=== PATIENT | male | born 1955 | race Caucasian/White ===

== ENCOUNTER 2017-03-09 12:44 | Inpatient (IN) | payer OTHER ==
[~2017-03-09] VITALS: Ht 180.3 cm; Wt 150.8 kg
[~2017-03-09 12:44] MED LIST: ALBU8.5H2 INHALATION; AMLO5TAB2 PO; FLC50T PO; FURO40TA4 PO; GUAI118L13 PO; IBUP800T28 PO; KETO120S3 TP; LIP40 PO; LISI-571 PO; METH750T3 PO; METO100T3 PO; METO50TA3 PO; OXYC-474 PO; OXYC-537 PO; POTA20TA7 PO; TIZA4CAP8 PO; WARF5TAB PO; WARF5TAB7 PO
[2017-03-25] VITALS (7 sets, daily range): BP systolic 90–141; BP diastolic 56–93; PULSE 70–85; RESP 17–19; O2SAT 94–98
[2017-03-25] MEDS ORDERED: Alum-Mag Hydrox-Simeth 30 mL Suspension PO PRN (08:35)
[2017-03-25] MEDS ORDERED: Polyethylene Glycol (PEG) 17 Gm Powder PO PRN (08:35)
[2017-03-25] MEDS ORDERED: NYQUIL PO (09:32)
[2017-03-25] MEDS ORDERED: FLUT16SP AD (09:32)
[2017-03-25 10:24] LABS: INR 3.23 ratio
[2017-03-25 10:42] LABS: Magnesium 1.4 mg/dL (1.6-2.6)
[2017-03-25] MEDS ORDERED: NYQUIL PO PRN (11:00)
[2017-03-25] MEDS ORDERED: Codeine-guaiFENesin 10 mL Syrup PO PRN (11:00)
[2017-03-25] MEDS ORDERED: Albuterol 2.5 mg/3 mL Inhalation Solution NEB PRN (11:00)
--- NOTE | 2017-03-25 11:44 | PCM.PHAPRO ---
Progress WARFARIN DOSING INDICATION: AFib Home dose: 5mg Moore,,, Fr / 7.5mg ,W,Thu (day) Thu [facility] GSF Date Mar 26-Mar 27-Mar 28-Mar 29-Feb 28-March 31-April 01-April 02-March INR 3.23 Warf Dose 2.5 mg x1 a/ Mildly elevated INR on admit p/ 50% dose today and follow Prashant Mc Pharm D Mar 25, 2017 11:44
[2017-03-25] MEDS: Sodium Chloride LOK Flush 10 mL Syringe IVFLUSH SCH ×3 (12:44→23:05)
--- NOTE | 2017-03-25 17:14 | HP ---
[address] [address] HISTORY AND PHYSICAL PATIENT: MABEL SCHULER : 1955 MR#: [id number] ADMIT: 03/25/2017 JOB ID: [id number] REASON FOR ADMISSION: To start new antiarrhythmic therapy for atrial fibrillation with sotalol. CHIEF COMPLAINT: Palpitations and rapid pulse with exertion. HISTORY: This patient is a pleasant, 61-year-old man with a structurally normal heart, who was referred to Dr. Vishal Barnes for management of atrial fibrillation and atrial flutter. He has been anticoagulated with warfarin for a number of years now and has been dealing with paroxysmal and persistent episodes of atrial fibrillation. He was started on flecainide and a beta sisi and underwent cardioversion last year. He maintained sinus rhythm for brief period of time during which he noted feeling better energy and easier breathing. After he reverted back to atrial fibrillation at one point, he also had documented atrial flutter which appeared to be typical in nature. His EKG of late showed atrial fibrillation with a controlled rate. He reports that whenever he exerts himself, his pulse rate can be very fast, and indeed on a treadmill test when he was in atrial fibrillation, the test had to be stopped due to heart rates in excess of 200 beats per minute. With tachycardia, he feels chest pressure. Prior to considering a catheter based mapping and ablation procedure for atrial fibrillation, he prefers to trial a different antiarrhythmic. PAST MEDICAL HISTORY: This is positive for hypertension, obstructive sleep apnea, hyperlipidemia, chronic back pain due to cervical spine stenosis. ALLERGIES/MEDICAL INTOLERANCES: 1. PENICILLIN. 2. AMOXICILLIN. 3. AUGMENTIN All cause a rash. FAMILY HISTORY: Not contributory to the present concern of arrhythmia. REVIEW OF SYSTEMS: In general, he complains of exertional tachycardia, fatigue and chest pressure along with exertional dyspnea. At rest, he denies dyspnea and cardiac rhythm is fairly regular and not tachycardia at rest. He is not feeling palpitations at rest. Skin: No rash. GI: No blood in stool, recent constipation. Hematology: No easy bleeding. Psychiatric: Positive for anxiety. : No hematuria. Eyes: Negative for visual changes. Cardiac: Positive for trace edema, palpitations and chest pressure. Neuro: Negative for dizziness. The other points of the review of systems are negative. PHYSICAL EXAMINATION: Vital signs: BP 122/88, pulse irregular at 80, he is afebrile, pulse oximetry 94% on room air, respiratory rate 17. Overall he is a well-nourished, well-developed, obese, middle aged man with no distress at present. He is anxious however. Head is normocephalic. Eyes: Pupils are accommodating. Extraocular movements are normal. Mouth has good dentition. Neck: Obese. Carotid pulses are difficult to palpate. There are no carotid bruits. No JVD is seen. Chest examination: Breath sounds are full and clear in all muhammad without rales. Cardiac exam reveals an irregular rhythm without bruits or extra sounds. Abdomen is obese, but nontender, no organomegaly is detected, bowel sounds are active. Pulses are intact in the extremities, there is trace edema in the legs. No cyanosis or clubbing noted. He moves all four limbs normally. His neuro exam is grossly normal. ASSESSMENT: Patient with a history of persistent atrial fibrillation. He is currently in atrial fibrillation with a controlled rate. He has previously been cardioverted and felt notably better in sinus rhythm. Prior treatment with flecainide was unsatisfactory. His initial ECG showed atrial fibrillation with average rate of 85 bpm and a QT of 377 and QTc 449 msec. Two hours after the first dose of sotalol, ECG showed atrial fibrillation, average rate 76 bpm, QT 398 and QTc 448 msec. He has not had any side effects of sotalol so far. PLAN: Continue sotalol at 80 mg q.12 h. with 12 lead ECG looking for abnormal prolongation of the QT interval. The ECG is recorded at 2-3 hours after each dose. If atrial fib persists to the third day, then will schedule cardioversion. He is theraputicly anticoagulated with warfarin. [facility]
--- NOTE | 2017-03-25 17:46 | NUR ---
Admit Pt arrived as a scheduled admission around 0800 this AM. A&O X3. Answers questions appropriately. Able to make needs known. Lungs clear throughout. HR irregular. Tele a-fib in the 80s. Last BM yesterday. Ambulates independently. Edema throughout feet, ankles, and legs. Trace, non-pitting mostly. Sotalol 80mg given at 1050 after EKG. EKG followed 2 hours later. Pt given oxycodone 10mg at 1210 and at 1640 for chronic back pain 05/09. Pt also c/o feeling anxious and will receive ativan.
[2017-03-25] MEDS: LORazepam 1 mg Tablet PO PRN (18:06)
--- NOTE | 2017-03-25 21:51 | NUR ---
SOTALOL Pt received 80mg Sotalol @ 2124, EKG ordered for 2324. Pt' vitals stable, no complaints of pain @ this time.
[2017-03-26] VITALS (7 sets, daily range): BP systolic 111–142; BP diastolic 73–95; PULSE 68–99; RESP 16–20; O2SAT 94–98
[2017-03-26 03:13] LABS: INR 3.21 ratio
[2017-03-26] MEDS: Fluticasone 0.05% 15 Spray/2 Gm 16 Gm Nasal Spray NASAL SCH (08:30)
[2017-03-26] MEDS: Sodium Chloride LOK Flush 10 mL Syringe IVFLUSH SCH ×5 (09:32→21:04)
[2017-03-26] MEDS: Potassium Chloride 20 mEq SR Tablet PO SCH (09:35)
[2017-03-26] MEDS: LORazepam 1 mg Tablet PO PRN ×2 (12:01→21:02)
--- NOTE | 2017-03-26 14:13 | PCM.PHAPRO ---
Progress WARFARIN DOSING INDICATION: AFib Home dose: 5mg ,,, Fr / 7.5mg ,W,Thu (day) Thu [facility] Date Mar 26-Mar 27-Mar 28-Mar 29-Feb 28-March 31-April 01-April 02-March INR 3.23 3.21 Warf Dose 2.5 mg x1 1mg x1 a/ Elevated INR continues in spite of reduced dose yesterday. p/ One mg today Prashant Mc S Pharm D Mar 26, 2017 14:13
--- NOTE | 2017-03-26 15:21 | NUR ---
Social Work: Initial Assessment D: Per EMR review, pt is a 61 year old female admitted for sotalol loading. Pt is David HA with no LTC insurance or VA benefits. PCP is Geremias Elizondo DO. NOK is Shira Lee, sister, . Advanced directives not completed- information provided. No Readmit score entered at this time. REHAB TRAINER met with pt at bedside. Sw role explained. See initial assessment. Pt lives in a two story home in [place]. Pt is I with ADLs at baseline and uses no DME. Pt continues to drive and has never had HH but had a short stay at [facility] for rehab several years ago. Pt expresses no concerns about discharge home and states a friend will transport. EMR reviewed; no sw needs identified at this time. Pt has been I during admission. A: pt who is I at baseline. P: Anticipate pt to discharge home with friend to transport once medically stable; REHAB TRAINER to continue to follow. YUKI Parr Addendum: 03/26/17 at 1535 by RAJAN RAYO Amended: Links added.
--- NOTE | 2017-03-26 18:43 | NUR ---
Tele No reports of chest pain/pressure/discomfort. Tele AFIB 80s-90s throughout shift. No reports of SOB at rest, reports mild SOB with ambulation. No reports of n/v/d/c or abdominal pain. Voiding without complication. Alert and oriented x3, BARROW, reports bilateral tingling/mild numbness in all extremities r/t back fusion/spasms.
[2017-03-27] VITALS (17 sets, daily range): BP systolic 84–146; BP diastolic 55–100; PULSE 58–89; RESP 11–24; O2SAT 94–97
[2017-03-27 04:00] LABS: INR 1.95 ratio
[2017-03-27 04:08] LABS: Magnesium 1.9 mg/dL (1.6-2.6)
--- NOTE | 2017-03-27 04:46 | NUR ---
Telemetry Pt afib 70s throughout shift; HS sotalol given with 2hr post-EKG obtained. Latest QTc 460. Pt reports pain at HS approx. 6/10 to back; Ativan, ibuprofen, oxycodone given in addition to HS medications. Pt reports mildly effective on reassessment; requests additional oxycodone and tylenol x1. VSS.
[2017-03-27] MEDS: Sodium Chloride LOK Flush 10 mL Syringe IVFLUSH SCH ×4 (08:30→16:55)
[2017-03-27] MEDS: Potassium Chloride 20 mEq SR Tablet PO SCH (08:54)
[2017-03-27] MEDS: LORazepam 1 mg Tablet PO PRN (08:56)
[2017-03-27] MEDS: Fluticasone 0.05% 15 Spray/2 Gm 16 Gm Nasal Spray NASAL SCH (08:56)
--- NOTE | 2017-03-27 09:16 | PROG NOTE ---
[address] [address] PROGRESS NOTE PATIENT: MABEL SCHULER : 1955 MR#: [id number] ADMIT: 03/25/2017 JOB ID: [id number] DATE: 03/26/2017 CHIEF COMPLAINT: "I feel a little anxious and fatigued." SUBJECTIVE: The patient is a pleasant 61-year-old man who was admitted yesterday for new antiarrhythmic therapy with sotalol for treatment of atrial fibrillation. He has had three doses of sotalol to this point, and he is tolerating them well and denies any side effects. Specifically, he denies nausea, rash, headache, shortness of breath and GI upset. OBJECTIVE: The patient's vital signs have remained stable. The metoprolol dose was decreased as the sotalol dose was increased and his BPs have stayed in the normal range. His initial 12 lead ECG showed an atrial fibrillation with an average rate of 85 BPM and the QTc of 449 msec. Now, after his third dose, he remains in atrial fibrillation with an average rate of 78 BPM and the QTc is still 449 msec. His sotalol dose was increased to 128 mg two hours before this last ECG. He has been ambulatory around the unit without difficulty. His physical examination is unchanged from admission. ASSESSMENT: The patient with persistent atrial fibrillation has been started on sotalol at 80 mg and the dose has been advanced to 120 mg b.i.d. His ECG is unchanged in terms of rhythm and QT interval. He has no side effects from the medication. His vital signs remain stable. PLAN: Continue sotalol at 120 mg b.i.d. with a 12 lead ECG recorded two hours after each dose to observe for any abnormal QT prolongation. We will plan on cardioversion tomorrow after the fifth dose if he remains in atrial fibrillation. He will be n.p.o. after midnight.
--- NOTE | 2017-03-27 09:31 | PCM.HPANE ---
Patient Data Surgeon Admitting Provider:Vishal Barnes MD Attending Provider:Vishal Barnes MD Primary Care Physician:Geremias Elizondo DO Other Provider: Reason for Visit Sotalol Loading Ht/WT & BMI Height (Feet): 5 Height (Inches): 11.00 Weight (Kilograms): 150.800 Body Mass Index 46.27 Allergies Coded Allergies: Penicillins (Verified Allergy, Severe, 10/28/15) amoxicillin (Verified Allergy, Unknown, 10/28/15) Past Anesthesia History Anesthesia History: Positive for:: Anesthesia Reactions (hallucinations), Denies:: Abnormal Airway, Difficult Intubation, Fam Anesthesia Reaction, Fam Malignant Hypertherm, Malignant Hyperthermia Additional Information: Emergence delerium following gallbladder surgery Diabetes History Hx Diabetes?: No (low blood sugar occasionally) MRSA MRSA: No Medications Blood Thinner: Coumadin Reported Medications [Nyquil] No Conflict Check1 Dose PO HS PRN For Cough 03/25/17 Fluticasone Propionate (Fluticasone Propionate Nasal)16 Gm [place].susp1 [place] AD DAILY #16 03/25/17 Ketoconazole 120 Ml Vanqzvn404 Ml TP Every 3 days 08/27/16 Tizanidine 4 Mg Capsule4 Mg PO HS 08/27/16 Oxycodone (Roxicodone)5 Mg Nbbqee11 Mg PO Q4H PRN For Pain Ref 0 08/27/16 Potassium Chloride ER (Klor-Con M20)20 Meq Zothhe59 Meq PO DAILY Ref 0 08/27/16 Ibuprofen 800 Mg Yzgwuy222 Mg PO BIDWM PRN For Pain Ref 0 08/27/16 Warfarin Sodium 5 Mg Tablet7.5 Mg PO MON, WED, SAT 30 Days Ref 0 08/27/16 Lisinopril 5 Mg Tablet5 Mg PO DAILY #30 TABLET Ref 0 08/27/16 Metoprolol Tartrate 100 Mg Ufccyv288 Mg PO BID 30 Days Ref 0 11/12/15 Methocarbamol 750 Mg Dxqksp117 Mg PO QID PRN For Spasm Ref 0 11/12/15 Furosemide 40 Mg Srbiuc76 Mg PO DAILY 11/12/15 Warfarin Sodium (Coumadin)5 Mg Tablet5 Mg PO TUE, ZIA, FRI, SUN 30 Days Ref 0 11/12/15 Guaifenesin/Codeine Phosphate (Cheratussin AC Syrup)118 Ml Opkiwp25 Ml PO q4hr 11/12/15 Atorvastatin (Lipitor)40 Mg Rsuopk13 Mg PO DAILY Ref 0 11/12/15 Amlodipine 5 Mg Tablet5 Mg PO DAILY Ref 0 11/12/15 Albuterol HFA (Proair HFA)8.5 Gm Hfa.aer.ad2 Puffs INHALATION Q4H #1 INHALER 11/12/15 Discontinued Reported Medications Metoprolol Tartrate 50 Mg Sdfrqo63 Mg PO BID 30 Days Ref 0 08/27/16 Flecainide Acetate 50 Mg Flvsys52 Mg PO BID 30 Days 08/27/16 Tizanidine 4 Mg Capsule4 Mg PO DAILY 11/12/15 Oxycodone HCl (Oxaydo)5 Mg Tablet.orl5 Mg PO 11/12/15 History History of ENT Problems?: Yes HEENT History: Positive for:: Hearing Problem Sinus Problem (sometimes) Denies:: Abnormal Airway Cataracts Difficult Intubation Dysphagia Glaucoma Denture Type: None Teeth Condition: Tooth Decay Hx of Heart Problems?: Yes Cardiovascular History: Positive for:: Atrial Fibrillation Chest Pain Congestive Heart Failure ("I think I might have, once") Edema (ankles) Hypertension Irregular Heartbeat (Afib) Denies:: AICD Cardiac Surgery (cardioversion 2015) Heart Murmur Pacemaker Thrombophlebitis Valvular Heart Disease Other History/Comments Well controlled hypertension, Afib with high heart rate, s/p cardioversion previously, ECHO completed Hx of Respiratory Problem?: Yes Respiratory History: Positive for:: Dyspnea Pneumonia Denies:: Asthma COPD (chronic bronchitis) Chest Surgery Emphysema Hemoptysis Tuberculosis Other History/Comment lungs at baseline function, no recent inhalor use Hx Neurologic Problems?: Yes Neurological History: Positive for:: Headaches Denies:: Alzheimer's Disease CVA Dementia Dizziness Parkinson's Disease Seizures Hx of GI Problems?: No Gastrointestinal History: Denies:: Cirrhosis Diverticulitis Gall Bladder Disease Gastroesphageal Reflux Gastrointestinal Bleeding Heartburn Hepatitis Hiatal Hernia Liver Disease Rectal Bleeding Hx of Problems?: No Genitourinary History: Denies:: HX of Hemodialysis Kidney Stones Urinary Tract Infection HX of Peritoneal Dialysis: No Male Hx: Denies:: Prostate Problems Scrotal Mass Testicular Surgery Hx Musculoskeletal Problems?: Yes Musculoskeletal History: Positive for:: Back Injury (back surgeries, physical labor with herniated discs) Denies:: Joint Replacement Musculoskeletal Trauma Hx of Psycho/Social Problems?: Yes Psycho Social History: Positive for:: Anxiety Hx Depression Denies:: Bipolar Disorder Suicide Attempt Hx Surgeries?: Yes (March 2009 Back surgery, CAR) Other History/Comment Emergence delerium Hx Any Other Health Problems?: No Other History: Positive for:: Hospitalization (back, cholelithiasis) Denies:: Cancer Endocrine Disease Thyroid Disease History Blood Transfusions: Positive for:: Accept Blood Products? Denies:: Blood Transfuse Reaction Blood Transfusions Hx Diabetes: No (low blood sugar occasionally) Hx Alcohol Use: NoHx Substance Use: Yes (marijuana edibles "a couple of times ") Smoking Status: Never Smoker Have You Smoked inLast 12 mo: No Stop/Bang Treated for Sleep Apnea?: Yes Do You Have a CPAP Machine?: Yes (left at home, says no one is available to bring it in) DOV Category 2: Yes Risk Assessment Category Category 1A: Patient has history of documented sleep apnea, and HAS NOT received any narcotic, sedative or anesthesia administration during this stay. Category 1B: Patient has history of documented sleep apnea, and HAS received any narcotic , sedative or anesthesia administration during this stay Category 2: Patient has SUSPECTED Obstructive Sleep Apnea, and HAS received any narcotic , sedative or anesthesia administration during this stay. Category 3: Patient has SUSPECTED Obstructive Sleep Apnea and HAS NOT received narcotic, sedative or anesthesia administration during this stay. Category 4: Outpatient in Procedural Areas with known sleep apnea or who screen positive for High Risk via the STOP/BANG questionnaire. Exam Exam Vital Signs Vital Signs Date Time Temp Pulse Resp B/P Pulse Ox O2 Delivery O2 Flow Rate FiO2 03/27/17 08:48 36.6 89 18 146/100 96 Room Air 03/27/17 07:52 83 03/27/17 03:21 80 03/27/17 02:42 36.5 78 18 125/83 94 Room Air General Appearance: Alert, Oriented X3, Cooperative HEENT/AIRWAY: MP 3 Lungs: Clear to Auscultation, Normal Air Movement Heart: Other Additional Information afib Meds/Labs/Diagnostics Admission Meds Current Medications Warfarin Sodium (Coumadin) 1 mg ONCE@17 ONCE PO Last administered on t 18:01; Start 03/26/17 at 17:00; Stop 03/26/17 at 17:01; Status DC Metoprolol Tartrate (Lopressor) 75 mg BID PO Last administered on 03/27/17 08: 54; Start 03/26/17 at 20:30 Sotalol HCl (Betapace) 120 mg BID PO Last administered on 03/27/17 08:55; Start 03/26/17 at 20:30 Warfarin Sodium (Coumadin) 5 mg ONCE ONCE PO Last administered on 03/27/17 09 :13; Start 03/27/17 at 08:25; Stop 03/27/17 at 08:26; Status DC Labs Test 03/25/17 09:55 03/27/17 03:10 Total Bilirubin 0.4mg/dL (0.0-1.2) Aspartate Amino Transf (AST/SGOT) 20U/L (0-50) Alanine Aminotransferase (ALT/SGPT) 19U/L (0-44) Alkaline Phosphatase 101U/L (25-160) Total Protein 6.4g/dL (6.4-8.4) Albumin 3.9g/dL (3.4-5.0) Prothrombin Time 21.2sec (8.1-12.5) Prothromb Time International Ratio 1.95ratio Sodium Level 136mEq/L (134-144) Potassium Level 4.2mEq/L (3.5-5.2) Chloride Level 98mEq/L (97-108) Carbon Dioxide Level 27mmol/L (18-29) Blood Urea Nitrogen 19mg/dL (8-27) Creatinine 0.79mg/dL (0.76-1.27) Estimat Glomerular Filtration Rate 105mL/min (>59) Glucose Level 90mg/dL (60-99) Calcium Level 8.8mg/dL (8.5-10.1) Magnesium Level 1.9mg/dL (1.6-2.6) Plan Impression Patient chart reviewed, patient interviewed and anesthestic plan with risks, benefits, and alternatives discussed, and informed consent obtained. Michael Duggan MD Mar 27, 2017 09:31
--- NOTE | 2017-03-27 13:34 | NUR ---
[facility]: Pt arrived to [facility] for cardioversion at 1325, in pt bed, report received from Shellie España RN. Pt alert and oriented, calm and conversant. Tele monitor afib 80's, no c/o chest pain. Awaiting procedure to be done with anesthesia
--- NOTE | 2017-03-27 15:52 | PROCED ---
[address] [address] PROCEDURE NOTE PATIENT: MABEL SCHULER : 1955 MR#: [id number] ADMIT: 03/25/2017 JOB ID: [id number] DATE OF SERVICE: 03/27/2017 PREOPERATIVE DIAGNOSIS(ES): Atrial fibrillation. POSTOPERATIVE DIAGNOSIS(ES): Sinus rhythm. PROCEDURE PERFORMED: Direct current cardioversion. SURGEON: Unified Communications Engineer: Vishal Barnes MD SEDATION: Monitored anesthesia care was provided by the Anesthesiology service. INDICATION: This patient is a 61-year-old man with preserved LV function, symptomatic paroxysmal drug refractory atrial fibrillation, who was admitted for sotalol loading and comes down for a direct current cardioversion after discussion of risks and benefits and after confirmation of adequate anticoagulation. PROCEDURAL DESCRIPTION: Following informed consent, the patient was taken to procedure suite in a fasting state where defibrillator patches were placed in the anterior and posterior positions. After adequate sedation, a 200 joule biphasic synchronized shock was used to convert him to sinus rhythm. He came back into sinus bradycardia. He will be allowed to recover and discharged home with close followup. COMPLICATIONS: None. ESTIMATED BLOOD LOSS: None. IMPRESSION: Successful direct current cardioversion. PLAN: 1. Recovery and eventual discharge on sotalol and warfarin. 2. Follow up with myself, in 3-4 weeks. ATTENDING STATEMENT: Vishal Barnes MD, electrophysiology attending, was present for and supervised/performed all aspects of this procedure.
--- NOTE | 2017-03-27 15:56 | PCM.ANEP1 ---
Post Anesthesia Phase 1 PACU Phase 1 Assessment Vital Signs Vital Signs Date Time Temp Pulse Resp B/P Pulse Ox O2 Delivery O2 Flow Rate FiO2 03/27/17 15:52 54 15 03/27/17 15:45 54 16 03/27/17 15:41 53 18 03/27/17 15:34 55 20 03/27/17 15:30 51 24 03/27/17 15:27 49 11 03/27/17 15:25 91 18 03/27/17 15:24 87 15 03/27/17 15:18 89 24 03/27/17 13:33 81 12 129/85 97 Room Air 03/27/17 11:34 36.7 82 18 128/90 96 Room Air 03/27/17 08:48 36.6 89 18 146/100 96 Room Air Anesthetic Administered: GA Level of Alertness: Sleepy, easy to arouse BARROW's with Equal Strength: Yes Pain: No Pain Scale Score: 0 Nausea or Vomiting: No Cardiovascular Function and Hy: Yes Oxygen Delivery: Simple Mask Lungs: Clear to Auscultation, Normal Air Movement Dermatome Level: Full Sensation Complications: No Michael Duggan MD Mar 27, 2017 15:56
--- NOTE | 2017-03-27 15:58 | NUR ---
Cardioversion: Dr. Barnes and anesthesiologist at bedside to perform cardioversion at 1525, converted to SB 50's after 1 shock by . Pt now awake and alert, SB 57, no c/o pain, SpO2 95% on RA. Report called to Shellie España RN to re-assume care of pt on PCC. Addendum: 03/27/17 at 1616 by DENNY ALDRIDGE RN Pt taken to PCC room 2000 in bed at 1610.
--- NOTE | 2017-03-27 17:16 | PCM.DIMED ---
Discharge Instructions Date of Service Mar 27, 2017 Dates of Hospitalization Mar 25, 2017 at 07:50 Discharge Diagnosis Discharge Diagnosis Persistent Atrial Fibrillation Hypertension Obstructive Sleep Apnea Diet Heart Healthy Activity No restrictions Call your provider Shortness of breath, Weakness (unilateral), Other (Fainting or near fainting) Patient Instructions Mid-level Provider (F9): Geoff Wolf PA-C Follow-up with Mid-level in: 5 weeks Geoff Wolf PA-C Mar 27, 2017 17:16
[2017-03-27] MEDS ORDERED: BET80 PO (17:31)
[2017-03-27] MEDS ORDERED: MAGN400T23 PO (17:31)
[2017-03-27] MEDS ORDERED: METO100T3 PO (17:31)
--- NOTE | 2017-03-27 18:11 | DIS ---
[address] [address] DISCHARGE SUMMARY PATIENT: MABEL SCHULER : 1955 MR#: [id number] ADMIT: 03/25/2017 JOB ID: [id number] DIS: 03/27/2017 REASON FOR ADMISSION: To start new antiarrhythmic therapy for atrial fibrillation with sotalol. CHIEF COMPLAINT: Palpitations and fatigue. BRIEF HISTORY: The patient is a pleasant, 61-year-old man with a structurally normal heart but who has hypertension and obstructive sleep apnea and has developed persistent atrial fibrillation. He has been anticoagulated with warfarin for a number of years now and has been dealing with symptomatic paroxysmal and now persistent episodes of atrial fibrillation. He was started on flecainide and a beta-sisi last year and underwent a cardioversion but later relapsed to atrial fibrillation. Rather than proceeding to an ablation procedure, he wished to try another antiarrhythmic medication first. He was admitted for starting sotalol as treatment of atrial fibrillation. COURSE IN HOSPITAL: The patient was admitted to the [facility] and after baseline ECG and lab work was obtained and he was placed on cardiac telemetry, he was administered sotalol 80 mg b.i.d. His initial 12-lead ECG showed atrial fibrillation with an average heart rate of 85 beats per minute and a QTc interval of 449 msec. Over the course of the next few days, his sotalol dose was advanced to 120 mg b.i.d., and after the fifth dose, the average heart rate was 88 and the QTc was 460 msec. He was then taken down to the [facility] and was placed under anesthesia by the anesthesiologist and had a cardioversion to sinus rhythm. After cardioversion, the sinus rate was 53 BPM and the QTc 439 msec. He was transferred back up to the [facility] and back on telemetry and his sinus rate came up into the high 50s and low 60s. He remained in sinus rhythm and felt well for discharge home. He had no shortness of breath, chest pain, or near-syncope. DISPOSITION: The patient was discharged home in good condition with a followup appointment at the [facility] Cardiology office in one month. He has no activity restrictions and will follow a heart healthy diet. DISCHARGE MEDICATIONS: 1. Magnesium oxide 800 mg b.i.d. 2. Sotalol 120 mg b.i.d. 3. Albuterol inhaler two puffs q.4 h. 4. Amlodipine 5 mg daily. 5. Atorvastatin 40 mg daily. 6. Fluticasone one spray daily. 7. Furosemide 40 mg daily. 8. Guaifenesin liquid 10 mL q.4 h. as needed. 9. Ibuprofen 800 mg b.i.d. as needed. 10. Ketoconazole Shampoo 120 mg/mL, 1 tablespoon every three days. 11. Lisinopril 5 mg daily. 12. Methocarbamol 750 mg q.i.d. p.r.n. muscle spasm. 13. Oxycodone 10 mg q.4 h. p.r.n. pain. 14. Potassium chloride ER 20 mEq daily. 15. Tizanidine 4 mg q.h.s. 16. Warfarin 5 mg four days per week and 7.5 mg three days per week or as directed by his anticoagulation clinic. 17. Metoprolol tartrate 75 mg b.i.d. FINAL DIAGNOSES: 1. Persistent atrial fibrillation. 2. Hypertension. 3. Obstructive sleep apnea.
[2017-03-27] MEDS ORDERED: Propofol 10,000 mCg/mL 20 mL Inj ONE (18:49)
--- NOTE | 2017-03-27 18:50 | NUR ---
Discharge Patient ambulated off unit in a stable condition. Tele removed, IV DC'd intact, all personal belongings with patient. Discussed new medications of Sotalol and Magnesium PO, both next due doses are scheduled for tonight -- per patient his pharmacy in [place] close at 8pm and should have time to pickle solution maker new prescriptions. Metoprolol switched from 150mg PO to 75mg -- next due dose tonight, patient verbalized understanding. All other medications to be continued, next due doses written and discussed. Patient had no follow up appointment scheduled for cardiology -- per patient, FRANCIS Wolf stated to follow up in 1 month. Instructed patient to call on Friday 03/30 to schedule follow up appointment -- verbalized understanding.
== END 2017-03-27 18:50 | disposition home or self-care (01) | DRG 201 ==
LOC: PCC 03-25 07:50
PROVIDERS: ADMIT Internal Medicine Cardiovascular Disease; ATTEND Internal Medicine Cardiovascular Disease
PROC: 5A2204Z Restoration of Cardiac Rhythm, Single (ICD-10-PCS; principal; 2017-03-27)
DX: I48.1 Persistent atrial fibrillation (principal); I10 Essential (primary) hypertension; G47.33 Obstructive sleep apnea (adult) (pediatric); E78.5 Hyperlipidemia, unspecified

== ENCOUNTER → 2017-08-18 | Day surgery (SDC) | payer OTHER ==
[~2017-08-18] VITALS: Ht 182.9 cm; Wt 143.9 kg
[~2017-08-18] MED LIST changes: +0.9% Sodium Chloride 1,000 ML IV SCH; -FLC50T PO; +FLUT16SP NOSTRIL; -GUAI118L13 PO; +MAGN400T23 PO; -METO100T3 PO; +Methohexital 10 mg/mL 50 mL Inj ONE; -OXYC-537 PO; +POLY17PO2 PO; +SOTA160T PO
[2017-08-18 09:35] VITALS: BP 126/79; PULSE 89; RESP 14; O2SAT 98
[2017-08-18 09:40] LABS: BASOPHILS % (AUTO) 0.7 % (0-3); EOSINOPHILS % (AUTO) 2.5 % (0-5); MONOCYTES % (AUTO) 9.6 % (4-12); Mean Corpuscular Hemoglobin 30.8 pg (27.0-35.0); Mean Corpuscular Volume 91.4 fL (81-100); Platelet Count 209 bil/L (150-400)
[2017-08-18 10:30] VITALS: BP 127/77; RESP 18
--- NOTE | 2017-08-18 10:35 | NUR ---
Cardioversion completed after 2nd attempt. I nitially gave patient Versed 1 mg and Brevital 60 mg iv, he did not become sedated and right AC PIV noted to be infiltrated and firm and red. New left AC iv started/20g and patient then given Versed 1 mg and Brevital 50mg IV followed by cardioversion x2, successful cardioversion to sinus rhythm.
--- NOTE | 2017-08-18 10:46 | PROCED ---
[address] [address] PROCEDURE NOTE PATIENT: MABEL SCHULER : 1955 MR#: [id number] ADMIT: 08/18/2017 JOB ID: [id number] DATE OF SERVICE: 08/18/2017 PREOPERATIVE DIAGNOSIS(ES): Atrial fibrillation. POSTOPERATIVE DIAGNOSIS(ES): Sinus rhythm. PROCEDURE PERFORMED: Direct current cardioversion. SURGEON: Vishal Barnes M.D., electrophysiology attending SEDATION: 1 mg of Versed and 160 mg Brevital utilized to an appropriate level of sedation. Of note the patient did infiltrate his right-sided IV and had another left-sided peripheral IV placed for sedation. He will be monitored longer in the recovery area. INDICATION: The patient is a pleasant 61-year-old man with recurrent symptomatic atrial fibrillation. After discussion of risks and benefits of cardioversion, he opted to proceed. PROCEDURAL DESCRIPTION: Following informed signed consent, the patient was taken to the procedure suite in a fasting state where defibrillator patches were placed in the anterior and posterior positions. After adequate sedation, a 200 joule biphasic synchronized shock was delivered. This failed to convert him to sinus rhythm. Another shock was delivered, this converting to sinus rhythm. He will be allowed to recover and discharged for close followup. COMPLICATIONS: None. ESTIMATED BLOOD LOSS: None: IMPRESSION: Successful direct current cardioversion. PLAN: 1. Recovery and discharge. 2. Continue warfarin and sotalol. 3. Follow up with Geoff Wolf PA-C, in clinic in four weeks. ATTENDING STATEMENT: Vishal Barnes M.D., electrophysiology attending, was present for and supervised/performed all aspects of this procedure.
[2017-08-18 11:27] VITALS: BP 103/61; PULSE 55; RESP 20; O2SAT 96
--- NOTE | 2017-08-18 11:29 | NUR ---
Right antecubital area is soft, there is no redness or pain.
--- NOTE | 2017-08-18 12:19 | NUR ---
Antecubital area remains negative for pain or inflammation.Discharge instructions reviewed earlier.Pt has eaten lunch and drank juice and coffee. 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 Sinus rhyhtm/bradycardia on monitor.
== END | disposition home or self-care (01) ==
LOC: SOUO 00:03 → EDSTATUS 08:49
PROVIDERS: ATTEND Internal Medicine Cardiovascular Disease
DX: I48.1 Persistent atrial fibrillation (principal); Z79.01 Long term (current) use of anticoagulants; Z79.899 Other long term (current) drug therapy; I10 Essential (primary) hypertension; E78.2 Mixed hyperlipidemia; G47.33 Obstructive sleep apnea (adult) (pediatric); J45.909 Unspecified asthma, uncomplicated
CPT/HCPCS: 36415; 80048; 85025; 92960; 93005; 94799; 99152; J2250